=== PATIENT | female | born 1965 | race Caucasian/White ===

== ENCOUNTER → 2016-10-22 | Outpatient (CLI) | payer BC ==
[2016-03-22 04:08] VITALS: BP 110/52
--- NOTE | 2016-10-22 09:44 | RAD ---
Chest PA and lateral. Indication: Preoperative evaluation for hysterectomy Comparison: None Findings: Cardiomediastinal silhouette is within normal limits. Lungs appear clear without focal con solidation, significant effusion or pneumothorax. Bony thorax appears normal. Impression: No acute cardiopulmonary abnormality. Reported By:
[2016-10-22 09:57] LABS: BASOPHILS # (AUTO) 0.1 X10^3/uL (0.0-0.1); BASOPHILS % (AUTO) 1.3 % (0.2-1.0); EOSINOPHILS # (AUTO) 0.1 x10^3/uL (0.0-0.2); EOSINOPHILS % (AUTO) 1.4 % (0.9-2.9); HEMATOCRIT 42.6 % (36.0-47.0); HEMOGLOBIN 14.8 g/dL (12.0-16.0); LYMPHOCYTES # (AUTO) 1.7 X10^3/uL (1.3-2.9); LYMPHOCYTES % (AUTO) 37.5 % (21.0-51.0); MEAN CORPUSCULAR HEMOGLOBIN 30.7 pg (27.0-34.0); MEAN CORPUSCULAR HGB CONC 34.6 g/dL (33.0-35.0); MEAN CORPUSCULAR VOLUME 88.8 fL (80.0-100.0); MEAN PLATELET VOLUME 9.1 fL (7.4-11.0); MONOCYTES # (AUTO) 0.4 x10^3/uL (0.3-0.8); MONOCYTES % (AUTO) 8.1 % (0.0-13.0); NEUTROPHILS # (AUTO) 2.3 x10^3/uL (2.2-4.8); NEUTROPHILS % (AUTO) 51.7 % (42.0-75.0); PLATELET COUNT 217 X10^3/uL (150.0-450.0); RED CELL DISTRIBUTION WIDTH 13.4 % (11.6-16.5); WHITE BLOOD COUNT 4.5 X10^3/uL (3.6-10.0)
[2016-10-22 10:01] LABS: BLOOD UREA NITROGEN 15 mg/dL (7-18); CALCIUM 8.5 mg/dL (8.5-10.1); CARBON DIOXIDE 31.2 mmol/L (21-32); CHLORIDE 106 mmol/L (98-107); CREATININE 0.77 mg/dL (0.55-1.02); GLUCOSE 73 mg/dL (65-99); SODIUM 142 mmol/L (136-145); eGFR BLACK RACES > 60 (>60); eGFR NON BLACK RACES > 60 (>60)
[2016-10-22 10:11] LABS: BILIRUBIN,URINE NEGATIVE (NEGATIVE); BLOOD/HEMOGLOBIN,URINE 5+ (NEGATIVE); GLUCOSE, URINE NEGATIVE (NEGATIVE); KETONES,URINE NEGATIVE (NEGATIVE); LEUKOCYTE ESTERASE ,URINE 1+ (NEGATIVE); NITRITES,URINE NEGATIVE (NEGATIVE); PROTEIN,URINE 2+ (NEGATIVE); UROBILINOGEN,URINE NORMAL (NORMAL)
[2016-10-22 10:21] LABS: SERUM PREGNANCY TEST, QUAL NEGATIVE <10 mIU/mL
[2016-10-22 10:23] LABS: AMORPHOUS SEDIMENT,UR TRACE /HPF (NEGATIVE); APPEARANCE,URINE SLIGHTLY HAZY (CLEAR); BACTERIA,URINE TRACE /HPF (NEGATIVE); COLOR,URINE YELLOW (YELLOW); MUCUS,URINE FEW /HPF (NEGATIVE); RBC,URINE TNTC /HPF (NEGATIVE); SQUAMOUS EPITHELIAL CELL,UR FEW /HPF (NEGATIVE)
== END ==
LOC: LAB 09:18
PROVIDERS: ATTEND Specialist
DX: Z01.812 Encounter for preprocedural laboratory examination (principal); Z01.811 Encounter for preprocedural respiratory examination; Z01.810 Encounter for preprocedural cardiovascular examination; N94.6 Dysmenorrhea, unspecified; N92.5 Other specified irregular menstruation; D50.9 Iron deficiency anemia, unspecified; N94.89 Other specified conditions associated with female genital organs and menstrual cycle
CPT/HCPCS: 36415; 71020; 80048; 81001; 84703; 85025; 85610; 85730; 86850; 86900; 86901; 87086; 93005; 93010

== ENCOUNTER 2016-10-28 06:49 | Day surgery (SDC) | payer BC ==
[~2016-10-28 06:49] MED LIST: ANCEF VIAL 1 GM 1 GM in NS 50 ML IV + SPIKE MINIBAG* 50 ML IV PRN; ANCEF VIAL 1 GM ONE; D5 1/2 NS 1000 ML 1,000 ML IV SCH
[2016-10-28] MEDS ORDERED: VASOSTRICT INJ 20 UNITS VIAL ONE (06:50)
[2016-10-28] MEDS ORDERED: DURAMORPH ONE (07:11)
[2016-10-28] MEDS ORDERED: FENTANYL INJ 250 mcg ONE (07:12)
[2016-10-28] MEDS ORDERED: NS 50 ML IV + SPIKE MINIBAG* 50 ML IV ONE (07:13)
[2016-10-28 07:20] VITALS: BMI 26.4
[2016-10-28] MEDS ORDERED: LR 1000 ML IV 1,000 ML IV ONE (08:48)
[2016-10-28] MEDS ORDERED: NS IRRIGATION 1000 ML 1,000 ML IR ONE (08:49)
[2016-10-28] MEDS ORDERED: PHENERGAN INJ 25 MG IVP PRN (09:33)
[2016-10-28] MEDS ORDERED: BENADRYL INJ 50 MG VIAL IVP PRN ×3 (09:33→09:52)
[2016-10-28] MEDS ORDERED: ZOFRAN INJ 4 MG VIAL IVP PRN (09:33)
[2016-10-28] MEDS ORDERED: REGLAN INJ 10 MG VIAL IVP PRN ×2 (09:33→09:52)
[2016-10-28] MEDS ORDERED: NARCAN INJ IVP PRN (09:52)
[2016-10-28] MEDS ORDERED: TORADOL 30 MG VIAL IVP PRN ×2 (09:52)
[2016-10-28] MEDS ORDERED: PERCOCET TAB 5/325 MG PO PRN (09:52)
[2016-10-28] MEDS ORDERED: DIPRIVAN VIAL ONE (10:39)
[2016-10-28] MEDS ORDERED: ROBINUL ONE (10:39)
[2016-10-28] MEDS ORDERED: EPHEDRINE SULFATE INJ ONE (10:39)
[2016-10-28] MEDS ORDERED: QUELICIN (OR ANECTINE) ONE (10:39)
[2016-10-28] MEDS ORDERED: SUPRANE IN ONE (10:39)
[2016-10-28] MEDS ORDERED: VERSED ONE (10:39)
[2016-10-28] MEDS ORDERED: NORCURON INJ 10 MG VIAL ONE (10:39)
[2016-10-28] MEDS ORDERED: XYLOCAINE 2 % (PLAIN) ONE (10:39)
[2016-10-28] MEDS ORDERED: ZOFRAN INJ 4 MG VIAL ONE (10:39)
[2016-10-28] MEDS ORDERED: REGLAN INJ 10 MG VIAL ONE (10:39)
[2016-10-28] MEDS ORDERED: NEOSTIGMINE INJ ONE (10:39)
[2016-10-28] MEDS: D5 1/2 NS 1000 ML 1,000 ML IV SCH ×2 (17:25→18:41)
[2016-10-28] MEDS: ZOFRAN INJ 4 MG VIAL IVP PRN ×2 (17:25→23:49)
[2016-10-29] MEDS: D5 1/2 NS 1000 ML 1,000 ML IV SCH ×2 (01:37→02:18)
[2016-10-29 05:16] LABS: BASOPHILS % (AUTO) 0.3 % (0.2-1.0); HEMATOCRIT 37.6 % (36.0-47.0); HEMOGLOBIN 12.9 g/dL (12.0-16.0); LYMPHOCYTES % (AUTO) 7.3 % (21.0-51.0); MEAN CORPUSCULAR HEMOGLOBIN 30.8 pg (27.0-34.0); MEAN CORPUSCULAR HGB CONC 34.3 g/dL (33.0-35.0); MEAN CORPUSCULAR VOLUME 89.7 fL (80.0-100.0); MEAN PLATELET VOLUME 10.1 fL (7.4-11.0); MONOCYTES # (AUTO) 0.7 x10^3/uL (0.3-0.8); MONOCYTES % (AUTO) 4.8 % (0.0-13.0); NEUTROPHILS # (AUTO) 12.1 x10^3/uL (2.2-4.8); NEUTROPHILS % (AUTO) 87.6 % (42.0-75.0); PLATELET COUNT 212 X10^3/uL (150.0-450.0); RED BLOOD COUNT 4.19 X10^6/uL (3.5-5.4); RED CELL DISTRIBUTION WIDTH 13.2 % (11.6-16.5); WHITE BLOOD COUNT 13.8 X10^3/uL (3.6-10.0)
[2016-10-29 05:23] LABS: BLOOD UREA NITROGEN 10 mg/dL (7-18); CALCIUM 7.8 mg/dL (8.5-10.1); CARBON DIOXIDE 31.3 mmol/L (21-32); CHLORIDE 106 mmol/L (98-107); COR NA(FOR HYPERGLY) 143 mmol/L (136-145); CREATININE 0.64 mg/dL (0.55-1.02); GLUCOSE 124 mg/dL (65-99); SODIUM 142 mmol/L (136-145); eGFR BLACK RACES > 60 (>60); eGFR NON BLACK RACES > 60 (>60)
[2016-10-29] MEDS ORDERED: PROTONIX TAB 40 MG PO SCH ×2 (09:00)
[2016-10-29] MEDS ORDERED: LOPRESSOR TAB 25 MG PO SCH ×2 (09:00)
[2016-10-29 11:46] VITALS: BP 90/53
== END 2016-10-29 10:00 | disposition home or self-care (01) ==
LOC: SURG1 06:49 → MED/SURG 09:52
PROVIDERS: ADMIT Specialist; ATTEND Specialist
PROC: 0UTC7ZZ Resection of Cervix, Via Natural or Artificial Opening (ICD-10-PCS; 2016-10-28)
PROC: 0UT27ZZ Resection of Bilateral Ovaries, Via Natural or Artificial Opening (ICD-10-PCS; 2016-10-28)
PROC: 0UT77ZZ Resection of Bilateral Fallopian Tubes, Via Natural or Artificial Opening (ICD-10-PCS; 2016-10-28)
PROC: 0UT97ZZ Resection of Uterus, Via Natural or Artificial Opening (ICD-10-PCS; principal; 2016-10-28 07:30)
DX: N92.5 Other specified irregular menstruation (principal); N94.4 Primary dysmenorrhea; D25.9 Leiomyoma of uterus, unspecified; D50.8 Other iron deficiency anemias
CPT/HCPCS: 36415; 80048; 85025; A4216; A4222; G0378; J0330; J0690; J2001; J2250; J2405; J2710; J2765; J3010; J3490; J7042; J7120

== ENCOUNTER → 2016-12-18 | Outpatient (CLI) | payer BC | LOC: RAD 09:41 | PROVIDERS: ATTEND Specialist | DX: Z12.31 Encounter for screening mammogram for malignant neoplasm of breast (principal) | CPT/HCPCS: 77067 ==